=== PATIENT | male | born 1965 | race Caucasian/White ===

== ENCOUNTER 2016-05-24 08:30 | Emergency (ER) | payer MEDICARE ==
[~2016-05-24] VITALS: Ht 188 cm; Wt 104.0 kg
[~2016-05-24 08:30] MED LIST: ALBU8HFA IH; DIVA500T52 PO; DSS100 PO; FLUD25I IM; LISI-660 PO; OMEP20 PO; OMEP20CA4 PO; QUET400T3 PO; QUET50TA PO
[2016-05-24 08:38] VITALS: BP 153/100
[2016-05-24] MEDS ORDERED: LIDOCAINE HCL/PF 1% 2 ML VIAL IM ONE (11:00)
[2016-05-24] MEDS ORDERED: CefTRIAXone SODIUM 1 GM/VIAL IM ONE (11:00)
[2016-05-24] MEDS ORDERED: HYDROCODONE/ACETAMINOPHEN 5-325 MG TABLET PO ONE (11:00)
== END 2016-05-24 11:56 | disposition home or self-care (01) ==
LOC: EMS 08:32
DX: L02.811 Cutaneous abscess of head [any part, except face] (principal); L03.811 Cellulitis of head [any part, except face]; F12.90 Cannabis use, unspecified, uncomplicated; F17.210 Nicotine dependence, cigarettes, uncomplicated
CPT/HCPCS: 96372; 99284; J0696; J3490

== ENCOUNTER 2017-04-11 11:55 | Emergency (ER) | payer MEDICARE ==
[~2017-04-11] VITALS: Ht 188 cm; Wt 90.9 kg
[2017-04-11 12:57] LABS: BASOPHILS % (AUTO) 0.1 % (0.0-2.0); EOSINOPHILS % (AUTO) 0.3 % (1.0-6.0); HEMATOCRIT 49.8 % (41-53); HEMOGLOBIN 16.6 g/dL (13.5-17.5); LYMPHOCYTES # (AUTO) 0.8 K/uL (1.0-4.8); MEAN CORPUSCULAR HEMOGLOBIN 29.1 pg (26.0-34.0); MEAN CORPUSCULAR HGB CONC 33.3 G/dL (31.0-37.0); MEAN CORPUSCULAR VOLUME 87 fL (80-100); MONOCYTES # (AUTO) 0.6 K/uL (0.1-1.0); MONOCYTES % (AUTO) 5.8 % (2.0-9.0); NEUTROPHILS # (AUTO) 8.9 K/uL (1.8-7.7); PLATELET COUNT (AUTO) 301 K/uL (150-450); RED BLOOD CELL COUNT(AUTO) 5.69 MIL/uL (4.50-5.90); RED CELL DISTRIBUTION WIDTH 13.6 % (11.5-14.5)
[2017-04-11 12:58] LABS: NEUTROPHILS % (AUTO) 85.8 % (40.0-70.0)
[2017-04-11 13:08] LABS: ANION GAP 11 mmol/L (8-16); CALCIUM, TOTAL 9.3 mg/dL (8.8-10.5); CARBON DIOXIDE 26 mmol/L (22-29); CHLORIDE 100 mmol/L (98-107); CREATININE 0.83 mg/dL (0.60-1.30); GLOMERULAR FILTR. RATE CALC > 60 mL/min (>60); GLUCOSE,RANDOM 133 mg/dL (70-110); POTASSIUM 3.8 mmol/L (3.5-5.1); SODIUM SERUM 137 mmol/L (136-145); UREA NITROGEN, BLOOD 11 mg/dL (7-18)
[2017-04-11 13:13] LABS: ALANINE AMINOTRANSFERASE 38 U/L (12-78); ALBUMIN 4.1 g/dL (3.4-5.0); ALKALINE PHOSPHATASE 102 U/L (46-116); ASPARTATE AMINOTRANSFERASE 26 U/L (15-37); BILIRUBIN,TOTAL 0.4 mg/dL (0.1-1.0); TOTAL PROTEIN, SERUM 8.2 g/dL (6.4-8.2)
[2017-04-11 13:25] LABS: AMPHET/METH SCREEN,URINE NEGATIVE (NEGATIVE); BARBITURATE SCREEN, URINE NEGATIVE (NEGATIVE); BENZODIAZEPINES SCREEN,URINE NEGATIVE (NEGATIVE); CANNABINOID SCREEN,URINE NEGATIVE (NEGATIVE); COCAINE SCREEN,URINE NEGATIVE (NEGATIVE); METHADONE SCREEN, URINE NEGATIVE (NEGATIVE); OPIATE SCREEN,URINE NEGATIVE (NEGATIVE)
[2017-04-11 13:26] LABS: PHENCYCLIDINE SCREEN,URINE NEGATIVE (NEGATIVE)
[2017-04-11] MEDS ORDERED: ARIPiprazole 2 MG TABLET PO ONE (16:45)
[2017-04-11 16:49] VITALS: BP 141/93
== END 2017-04-11 16:52 | disposition home or self-care (01) ==
LOC: EMS 11:57
DX: F31.9 Bipolar disorder, unspecified (principal); F20.9 Schizophrenia, unspecified; F41.9 Anxiety disorder, unspecified; F17.210 Nicotine dependence, cigarettes, uncomplicated; F12.90 Cannabis use, unspecified, uncomplicated; Z91.14 Patient's other noncompliance with medication regimen
CPT/HCPCS: 36415; 80053; 80307; 85025; 99284; G0480

== ENCOUNTER 2017-04-25 11:25 | Inpatient (IN) | payer MEDICARE ==
[~2017-04-25] VITALS: Ht 188 cm; Wt 84.9 kg
[2017-04-25 11:41] LABS: BASOPHILS % (AUTO) 0.6 % (0.0-2.0); EOSINOPHILS % (AUTO) 1.9 % (1.0-6.0); HEMATOCRIT 47.5 % (41-53); HEMOGLOBIN 15.9 g/dL (13.5-17.5); LYMPHOCYTES # (AUTO) 1.8 K/uL (1.0-4.8); LYMPHOCYTES % (AUTO) 19.3 % (22.0-44.0); MEAN CORPUSCULAR HEMOGLOBIN 28.5 pg (26.0-34.0); MEAN CORPUSCULAR HGB CONC 33.5 G/dL (31.0-37.0); MEAN CORPUSCULAR VOLUME 85 fL (80-100); MONOCYTES # (AUTO) 0.8 K/uL (0.1-1.0); MONOCYTES % (AUTO) 8.3 % (2.0-9.0); NEUTROPHILS # (AUTO) 6.4 K/uL (1.8-7.7); NEUTROPHILS % (AUTO) 69.9 % (40.0-70.0); PLATELET COUNT (AUTO) 257 K/uL (150-450); RED BLOOD CELL COUNT(AUTO) 5.59 MIL/uL (4.50-5.90); RED CELL DISTRIBUTION WIDTH 13.9 % (11.5-14.5)
[2017-04-25 11:51] LABS: ANION GAP 8 mmol/L (8-16); CARBON DIOXIDE 26 mmol/L (22-29); CHLORIDE 102 mmol/L (98-107); CREATININE 0.92 mg/dL (0.60-1.30); GLOMERULAR FILTR. RATE CALC > 60 mL/min (>60); GLUCOSE,RANDOM 95 mg/dL (70-110); SODIUM SERUM 136 mmol/L (136-145); UREA NITROGEN, BLOOD 20 mg/dL (7-18)
[2017-04-25] MEDS ORDERED: LORazepam 2 MG/ML VIAL ONE (11:54)
[2017-04-25] MEDS ORDERED: DiphenhydrAMINE HCL 50 MG/ML VIAL ONE (11:54)
[2017-04-25] MEDS ORDERED: HALOPERIDOL LACTATE 5 MG/ML VIAL ONE (11:54)
[2017-04-25 11:56] LABS: AMPHET/METH SCREEN,URINE NEGATIVE (NEGATIVE); BARBITURATE SCREEN, URINE NEGATIVE (NEGATIVE); BENZODIAZEPINES SCREEN,URINE NEGATIVE (NEGATIVE); CANNABINOID SCREEN,URINE NEGATIVE (NEGATIVE); COCAINE SCREEN,URINE NEGATIVE (NEGATIVE); METHADONE SCREEN, URINE NEGATIVE (NEGATIVE); OPIATE SCREEN,URINE NEGATIVE (NEGATIVE)
[2017-04-25 11:57] LABS: PHENCYCLIDINE SCREEN,URINE NEGATIVE (NEGATIVE)
[2017-04-25 11:58] LABS: ALANINE AMINOTRANSFERASE 33 U/L (12-78); ALBUMIN 4.3 g/dL (3.4-5.0); ALKALINE PHOSPHATASE 125 U/L (46-116); ASPARTATE AMINOTRANSFERASE 25 U/L (15-37); BILIRUBIN,TOTAL 0.4 mg/dL (0.1-1.0); TOTAL PROTEIN, SERUM 7.8 g/dL (6.4-8.2); VALPROIC ACID < 3 mcg/mL (50-100)
[2017-04-25] MEDS ORDERED: HALOPERIDOL 5 MG TABLET PO ONE (12:00)
[2017-04-25] MEDS ORDERED: LORazepam 1 MG TABLET PO ONE (12:00)
[2017-04-25] MEDS ORDERED: DiphenhydrAMINE HCL 50 MG/ML VIAL IM ONE (12:15)
[2017-04-25] MEDS ORDERED: LORazepam 2 MG/ML VIAL IM ONE (12:15)
[2017-04-25] MEDS ORDERED: HALOPERIDOL LACTATE 5 MG/ML VIAL IM ONE (12:15)
[2017-04-25] MEDS ORDERED: ZOLPIDEM TARTRATE 10 MG TABLET PO PRN (12:45)
[2017-04-25] MEDS ORDERED: HALOPERIDOL 5 MG TABLET PO PRN (12:45)
[2017-04-25 13:29] LABS: FREE T4 (FREE THYROXINE) 1.08 ng/dL (0.76-1.46); THYROID STIMULATING HORMONE 0.92 uIU/mL (0.36-3.74)
[2017-04-26] MEDS: LORazepam 2 MG TABLET PO PRN ×2 (05:11→10:11)
[2017-04-26 11:57] VITALS: BP 105/71
[2017-04-26] MEDS ORDERED: INFLUENZA VIRUS VACCINE QVS 2017-18 (3YR+)/PF 60 MCG/0.5 ML SYRINGE IM ONE (12:00)
[2017-04-26] MEDS ORDERED: DOCUSATE SODIUM 100 MG CAPSULE PO PRN (12:30)
[2017-04-26 16:00] VITALS: BP 121/68
[2017-04-27 04:43] VITALS: BP 141/97
[2017-04-27] MEDS: LORazepam 2 MG TABLET PO PRN ×2 (06:26→13:35)
[2017-04-27] MEDS: OMEPRAZOLE 20 MG CAPSULE PO SCH (06:26)
[2017-04-27 08:15] VITALS: BP 112/77
[2017-04-27] MEDS: LISINOPRIL 5 MG TABLET PO SCH (08:28)
[2017-04-27] MEDS ORDERED: DIVALPROEX SODIUM 500 MG ER TABLET PO SCH ×2 (09:00→21:00)
[2017-04-27] MEDS ORDERED: LOPERAMIDE HCL 2 MG CAPSULE PO PRN (09:45)
[2017-04-27] MEDS ORDERED: MAGNESIUM HYDROXIDE SUSPENSION 30 ML UDCUP PO PRN (09:45)
[2017-04-27] MEDS ORDERED: MAG HYDROX/AL HYDROX/SIMETH ES 30 ML SUSPENSION UDCUP PO PRN (09:45)
[2017-04-27] MEDS ORDERED: IBUPROFEN 600 MG TABLET PO PRN (09:45)
[2017-04-27] MEDS ORDERED: BACITRACIN 28.4 GM OINTMENT TP PRN (09:45)
[2017-04-27] MEDS ORDERED: ALBUTEROL SULFATE HFA 90 MCG/PUFF 8 GM INHALER IH PRN (09:45)
[2017-04-27] MEDS ORDERED: PETROLATUM,WHITE 71 GM JELLY TP PRN (09:45)
[2017-04-27] MEDS ORDERED: ACETAMINOPHEN 325 MG TABLET PO PRN (09:45)
[2017-04-27] MEDS ORDERED: ONDANSETRON HCL 4 MG TABLET PO PRN (09:45)
[2017-04-27] MEDS ORDERED: CloNIDine HCL 0.1 MG TABLET PO PRN (09:45)
[2017-04-27] MEDS ORDERED: BENZOCAINE/MENTHOL LOZENGE MM PRN (09:45)
[2017-04-27] MEDS: ARIPiprazole 10 MG TABLET PO SCH (10:36)
[2017-04-27 16:00] VITALS: BP 137/75
[2017-04-27] MEDS: TERBINAFINE HCL 1% 30 GM CREAM TP SCH (17:10)
[2017-04-28 02:15] VITALS: BP 114/76
[2017-04-28] MEDS: LORazepam 2 MG TABLET PO PRN ×5 (02:20→18:32)
[2017-04-28] MEDS: OMEPRAZOLE 20 MG CAPSULE PO SCH (06:02)
[2017-04-28 08:00] VITALS: BP 115/60
[2017-04-28] MEDS: LISINOPRIL 5 MG TABLET PO SCH (08:48)
[2017-04-28] MEDS: ARIPiprazole 10 MG TABLET PO SCH (08:48)
[2017-04-28] MEDS: TERBINAFINE HCL 1% 30 GM CREAM TP SCH ×2 (08:49→16:52)
[2017-04-28] MEDS: MAGNESIUM SULFATE 454 GM BOX TP SCH (08:49)
[2017-04-28] MEDS ORDERED: LORazepam 2 MG TABLET PO ONE (09:45)
[2017-04-28 16:00] VITALS: BP 132/89
[2017-04-29 00:14] VITALS: BP 123/86
[2017-04-29] MEDS: OMEPRAZOLE 20 MG CAPSULE PO SCH (06:37)
[2017-04-29 08:04] VITALS: BP 119/79
[2017-04-29 08:55] LABS: ANION GAP 5 mmol/L (8-16); CALCIUM, TOTAL 8.8 mg/dL (8.8-10.5); CARBON DIOXIDE 31 mmol/L (22-29); CHLORIDE 102 mmol/L (98-107); CREATININE 0.85 mg/dL (0.60-1.30); GLOMERULAR FILTR. RATE CALC > 60 mL/min (>60); GLUCOSE,RANDOM 88 mg/dL (70-110); SODIUM SERUM 138 mmol/L (136-145); UREA NITROGEN, BLOOD 17 mg/dL (7-18)
[2017-04-29] MEDS: LISINOPRIL 5 MG TABLET PO SCH (09:42)
[2017-04-29] MEDS: ARIPiprazole 10 MG TABLET PO SCH (09:42)
[2017-04-29] MEDS: LORazepam 2 MG TABLET PO PRN (09:42)
[2017-04-29] MEDS: MAGNESIUM SULFATE 454 GM BOX TP SCH (09:42)
[2017-04-29] MEDS: TERBINAFINE HCL 1% 30 GM CREAM TP SCH (09:43)
[2017-04-29] MEDS ORDERED: LORazepam 1 MG TABLET PO PRN (12:45)
[2017-04-29] MEDS ORDERED: ARIP10TA8 PO (13:33)
== END 2017-04-29 15:50 | disposition home or self-care (01) | DRG 885 ==
LOC: EMS 11:26 → B3A 04-26 10:34
DX: F25.1 Schizoaffective disorder, depressive type (principal); R45.851 Suicidal ideations; B35.3 Tinea pedis; F41.9 Anxiety disorder, unspecified; F17.210 Nicotine dependence, cigarettes, uncomplicated; G47.00 Insomnia, unspecified; I10 Essential (primary) hypertension; J44.9 Chronic obstructive pulmonary disease, unspecified; K21.9 Gastro-esophageal reflux disease without esophagitis; K59.00 Constipation, unspecified; M19.90 Unspecified osteoarthritis, unspecified site; Z59.9 Problem related to housing and economic circumstances, unspecified; Z79.899 Other long term (current) drug therapy
CPT/HCPCS: 84439; 84443; 90471; 96372; 99285; G0480; J1200; J1630; J2060

== ENCOUNTER 2019-12-12 09:37 | Emergency (ER) | payer MEDICAID, MEDICARE ==
[~2019-12-12] VITALS: Ht 188 cm; Wt 81.8 kg
[~2019-12-12 09:37] MED LIST changes: -ALBU8HFA IH; +ARIP10TA8 PO; -DIVA500T52 PO; -DSS100 PO; -FLUD25I IM; -OMEP20 PO; -QUET400T3 PO; -QUET50TA PO
[2019-12-12] MEDS ORDERED: PERTUSS(ACELL),DIPH,TET VAC/PF 0.5 ML VIAL IM ONE (10:00)
[2019-12-12] MEDS ORDERED: HYDROCODONE/ACETAMINOPHEN 5-325 MG TABLET PO ONE (10:00)
[2019-12-12 10:52] VITALS: BP 129/75
== END 2019-12-12 11:32 | disposition left against medical advice (07) ==
LOC: EMS 09:46
DX: S61.441A Puncture wound with foreign body of right hand, initial encounter (principal); F31.9 Bipolar disorder, unspecified; F41.9 Anxiety disorder, unspecified; F20.9 Schizophrenia, unspecified; F12.90 Cannabis use, unspecified, uncomplicated; F17.210 Nicotine dependence, cigarettes, uncomplicated; Z79.899 Other long term (current) drug therapy; W45.8XXA Other foreign body or object entering through skin, initial encounter; Y93.89 Activity, other specified; Y92.89 Other specified places as the place of occurrence of the external cause; Y99.8 Other external cause status
CPT/HCPCS: 73200; 90471; 90715; 96372; 99284; J0690

== ENCOUNTER 2021-01-02 19:57 | Emergency (ER) | payer MEDICARE ==
[~2021-01-02] VITALS: Ht 188 cm; Wt 81.8 kg
[2021-01-02 19:59] VITALS: BP 137/93
== END 2021-01-02 22:40 | disposition left against medical advice (07) ==
LOC: EMS 20:00
DX: L08.9 Local infection of the skin and subcutaneous tissue, unspecified (principal); Z53.21 Procedure and treatment not carried out due to patient leaving prior to being seen by health care provider

== ENCOUNTER → 2021-01-02 | Emergency (ER) | payer MEDICARE ==
[~2021-01-02] VITALS: Ht 182.9 cm; Wt 81.8 kg
[~2021-01-02] MED LIST changes: +ARIP10TA38 PO; -ARIP10TA8 PO; -LISI-660 PO; +LISI-892 PO
[2021-01-03 02:00] VITALS: BP 134/70
== END | disposition left against medical advice (07) ==
LOC: EMS 23:23
DX: F20.9 Schizophrenia, unspecified (principal); F31.9 Bipolar disorder, unspecified; F41.9 Anxiety disorder, unspecified; F12.90 Cannabis use, unspecified, uncomplicated; F17.210 Nicotine dependence, cigarettes, uncomplicated; Z76.5 Malingerer [conscious simulation]; Z59.00 Homelessness unspecified; Z79.899 Other long term (current) drug therapy
CPT/HCPCS: 99283; Z7502

== ENCOUNTER 2022-10-13 19:21 | Emergency (ER) | payer MEDICARE ==
[~2022-10-13] VITALS: Ht 188 cm; Wt 82.0 kg
[2022-10-13] MEDS ORDERED: OxyCODONE HCL/ACETAMINOPHEN 5-325 MG TABLET PO ONE (21:15)
[2022-10-13 21:22] LABS: BASOPHILS % (AUTO) 0.2 % (0.0-2.0); EOSINOPHILS % (AUTO) 0.6 % (1.0-6.0); HEMATOCRIT 34.8 % (41-53); HEMOGLOBIN 11.5 g/dL (13.5-17.5); LYMPHOCYTES % (AUTO) 13.3 % (22.0-44.0); MEAN CORPUSCULAR VOLUME 79 fL (80-100); MONOCYTES # (AUTO) 0.9 K/uL (0.1-1.0); MONOCYTES % (AUTO) 12.1 % (2.0-9.0); NEUTROPHILS # (AUTO) 5.6 K/uL (1.8-7.7); NEUTROPHILS % (AUTO) 73.8 % (40.0-70.0); PLATELET COUNT (AUTO) 314 K/uL (150-450); RED BLOOD CELL COUNT(AUTO) 4.41 MIL/uL (4.50-5.90); RED CELL DISTRIBUTION WIDTH 16.3 % (11.5-14.5)
[2022-10-13 21:31] LABS: ANION GAP 13 mmol/L (8-16); CALCIUM, TOTAL 8.9 mg/dL (8.8-10.5); CARBON DIOXIDE 21 mmol/L (22-29); CHLORIDE 100 mmol/L (98-107); CREATININE 0.82 mg/dL (0.60-1.30); GLOMERULAR FILTR. RATE CALC > 60 mL/min (>60); GLUCOSE,RANDOM 106 mg/dL (70-110); POTASSIUM 3.6 mmol/L (3.5-5.1); SODIUM SERUM 134 mmol/L (136-145)
[2022-10-13 21:34] LABS: INR 1.1 (0.9-1.1); PROTHROMBIN TIME 11.7 SEC (9.4-11.6)
[2022-10-13 21:38] LABS: ALANINE AMINOTRANSFERASE 23 U/L (12-78); ALBUMIN 3.1 g/dL (3.4-5.0); ALKALINE PHOSPHATASE 128 U/L (46-116); ASPARTATE AMINOTRANSFERASE 27 U/L (15-37); BILIRUBIN,TOTAL 0.5 mg/dL (0.1-1.0); TOTAL PROTEIN, SERUM 8.4 g/dL (6.4-8.2)
[2022-10-13 21:58] VITALS: TEMP 98.7
[2022-10-13] MEDS ORDERED: MORPHINE SULFATE 4 MG/ML SYRINGE IVP ONE (22:30)
[2022-10-13] MEDS ORDERED: IOHEXOL 350 MG/ML 100 ML VIAL ONE (22:52)
[2022-10-13] MEDS ORDERED: SODIUM CHLORIDE 0.9% 100 ML ONE (22:52)
[2022-10-13] MEDS ORDERED: PERTUSS(ACELL),DIPH,TET VAC/PF 0.5 ML SYRINGE IM. ONE (23:00)
[2022-10-14] MEDS ORDERED: OxyCODONE HCL/ACETAMINOPHEN 5-325 MG TABLET PO ONE (02:45)
[2022-10-14 11:45] VITALS: BP 121/73; PULSE 84; RESP 18
== END 2022-10-14 13:07 | disposition home or self-care (01) ==
LOC: EMS 19:22
DX: S02.2XXA Fracture of nasal bones, initial encounter for closed fracture (principal); S00.33XA Contusion of nose, initial encounter; S09.90XA Unspecified injury of head, initial encounter; F41.9 Anxiety disorder, unspecified; M19.90 Unspecified osteoarthritis, unspecified site; F31.9 Bipolar disorder, unspecified; J44.9 Chronic obstructive pulmonary disease, unspecified; I10 Essential (primary) hypertension; F20.9 Schizophrenia, unspecified; F17.210 Nicotine dependence, cigarettes, uncomplicated; F12.90 Cannabis use, unspecified, uncomplicated; F15.90 Other stimulant use, unspecified, uncomplicated; Z98.890 Other specified postprocedural states; W18.39XA Other fall on same level, initial encounter; Y93.89 Activity, other specified; Y92.89 Other specified places as the place of occurrence of the external cause; Y99.8 Other external cause status
CPT/HCPCS: 99285; 70450; 96374; 71045; 80053; 84484; 85025; 85610; 85730; 36415; 70486; 72125; 73701; 90715; 93005; 90471; J2270; Q9967; J7050

== ENCOUNTER 2023-06-23 09:13 | Emergency (ER) | payer MEDICARE, MEDICAID ==
[~2023-06-23] VITALS: Ht 182.9 cm; Wt 81.8 kg
[2023-06-23 09:38] VITALS: TEMP 98.6
[2023-06-23 10:23] LABS: BASOPHILS % (AUTO) 0.2 % (0.0-2.0); EOSINOPHILS % (AUTO) 1.9 % (1.0-6.0); HEMATOCRIT 41.3 % (41-53); HEMOGLOBIN 13.4 g/dL (13.5-17.5); LYMPHOCYTES # (AUTO) 0.9 K/uL (1.0-4.8); LYMPHOCYTES % (AUTO) 18.8 % (22.0-44.0); MEAN CORPUSCULAR HEMOGLOBIN 24.9 pg (26.0-34.0); MEAN CORPUSCULAR HGB CONC 32.4 G/dL (31.0-37.0); MEAN CORPUSCULAR VOLUME 77 fL (80-100); MONOCYTES # (AUTO) 0.5 K/uL (0.1-1.0); MONOCYTES % (AUTO) 10.7 % (2.0-9.0); NEUTROPHILS # (AUTO) 3.3 K/uL (1.8-7.7); NEUTROPHILS % (AUTO) 68.4 % (40.0-70.0); PLATELET COUNT (AUTO) 271 K/uL (150-450); RED BLOOD CELL COUNT(AUTO) 5.37 MIL/uL (4.50-5.90); RED CELL DISTRIBUTION WIDTH 16.1 % (11.5-14.5); WHITE BLOOD COUNT (AUTO) 4.9 K/uL (4.5-11.0)
[2023-06-23 10:26] LABS: ANION GAP 7 mmol/L (8-16); CARBON DIOXIDE 29 mmol/L (22-29); CHLORIDE 101 mmol/L (98-107); CREATININE 0.75 mg/dL (0.60-1.30); GLOMERULAR FILTR. RATE CALC > 60 mL/min (>60); GLUCOSE,RANDOM 89 mg/dL (70-110); POTASSIUM 3.5 mmol/L (3.5-5.1); SODIUM SERUM 137 mmol/L (136-145); UREA NITROGEN, BLOOD 15 mg/dL (7-18)
[2023-06-23 10:33] LABS: ALANINE AMINOTRANSFERASE 22 U/L (12-78); ALBUMIN 3.2 g/dL (3.4-5.0); ALKALINE PHOSPHATASE 126 U/L (46-116); ASPARTATE AMINOTRANSFERASE 31 U/L (15-37); BILIRUBIN,TOTAL 0.4 mg/dL (0.1-1.0)
[2023-06-23 10:39] LABS: ALCOHOL, BLOOD (SERUM) < 3 mg/dL (0-10)
[2023-06-23 11:59] LABS: APPEARANCE,URINE CLEAR (CLEAR); BILIRUBIN,URINE NEGATIVE (NEGATIVE); COLOR,URINE LIGHT YELLOW (YELLOW); GLUCOSE, URINE (UA) NEGATIVE (NEGATIVE); LEUKOCYTE ESTERASE ,URINE NEGATIVE (NEGATIVE); NITRATE,URINE NEGATIVE (NEGATIVE); OCCULT BLOOD,URINE NEGATIVE (NEGATIVE); PROTEIN,URINE NEGATIVE (NEGATIVE); SPECIFIC GRAVITIY, URINE 1.024 (1.003-1.030); UROBILINOGEN,URINE <=1.0 mg/dL (<=1.0)
[2023-06-23 12:05] LABS: ALCOHOL, URINE DRUG SCREEN NEGATIVE (NEGATIVE); AMPHET/METH SCREEN,URINE POSITIVE (NEGATIVE); BARBITURATE SCREEN, URINE NEGATIVE (NEGATIVE); BENZODIAZEPINES SCREEN,URINE NEGATIVE (NEGATIVE); CANNABINOID SCREEN,URINE POSITIVE (NEGATIVE); COCAINE SCREEN,URINE NEGATIVE (NEGATIVE); METHADONE SCREEN, URINE NEGATIVE (NEGATIVE); OPIATE SCREEN,URINE NEGATIVE (NEGATIVE); PHENCYCLIDINE SCREEN,URINE NEGATIVE (NEGATIVE)
[2023-06-23] MEDS ORDERED: OMEP20 PO (13:10)
[2023-06-23] MEDS: ONDANSETRON HCL 4 MG TABLET PO ONE (13:12)
[2023-06-23 13:15] VITALS: BP 165/100; PULSE 75; RESP 16
[2023-06-25] MEDS ORDERED: OLAN7.5T22 PO (09:13)
== END 2023-06-23 13:31 | disposition home or self-care (01) ==
LOC: EMS 09:13
DX: F31.9 Bipolar disorder, unspecified (principal); F19.10 Other psychoactive substance abuse, uncomplicated; D64.9 Anemia, unspecified; K59.00 Constipation, unspecified; I10 Essential (primary) hypertension; J44.9 Chronic obstructive pulmonary disease, unspecified; F41.9 Anxiety disorder, unspecified; F20.9 Schizophrenia, unspecified; K21.9 Gastro-esophageal reflux disease without esophagitis; F17.210 Nicotine dependence, cigarettes, uncomplicated; F12.90 Cannabis use, unspecified, uncomplicated; F15.90 Other stimulant use, unspecified, uncomplicated; Z59.00 Homelessness unspecified
CPT/HCPCS: 99283; 80053; 85025; 36415; 80307; 81003; Q0162; G0480

== ENCOUNTER 2023-09-16 21:43 | Emergency (ER) | payer MEDICARE, MEDICAID ==
[~2023-09-16] VITALS: Ht 180.3 cm; Wt 84.1 kg
[2023-09-16 21:48] VITALS: BP 115/81; PULSE 76; RESP 18; TEMP 98.6
== END 2023-09-17 00:59 | disposition left against medical advice (07) ==
LOC: EMS 21:43
DX: M79.671 Pain in right foot (principal); Z53.21 Procedure and treatment not carried out due to patient leaving prior to being seen by health care provider

== ENCOUNTER 2023-09-17 18:28 | Emergency (ER) | payer MEDICARE, MEDICAID ==
[~2023-09-17] VITALS: Ht 180.3 cm; Wt 70.0 kg
[2023-09-17 19:29] VITALS: TEMP 97.3
[2023-09-17 19:59] LABS: BASOPHILS % (AUTO) 0.2 % (0.0-2.0); EOSINOPHILS % (AUTO) 8.9 % (1.0-6.0); HEMATOCRIT 34.8 % (41-53); HEMOGLOBIN 11.1 g/dL (13.5-17.5); LYMPHOCYTES # (AUTO) 1.4 K/uL (1.0-4.8); LYMPHOCYTES % (AUTO) 20.8 % (22.0-44.0); MEAN CORPUSCULAR HEMOGLOBIN 25.2 pg (26.0-34.0); MEAN CORPUSCULAR HGB CONC 31.9 G/dL (31.0-37.0); MEAN CORPUSCULAR VOLUME 79 fL (80-100); MONOCYTES # (AUTO) 0.6 K/uL (0.1-1.0); MONOCYTES % (AUTO) 8.7 % (2.0-9.0); NEUTROPHILS # (AUTO) 4.2 K/uL (1.8-7.7); NEUTROPHILS % (AUTO) 61.4 % (40.0-70.0); PLATELET COUNT (AUTO) 399 K/uL (150-450); RED CELL DISTRIBUTION WIDTH 16.6 % (11.5-14.5); WHITE BLOOD COUNT (AUTO) 6.8 K/uL (4.5-11.0)
[2023-09-17 20:09] LABS: ANION GAP 3 mmol/L (8-16); CALCIUM, TOTAL 8.4 mg/dL (8.8-10.5); CARBON DIOXIDE 31 mmol/L (22-29); CHLORIDE 104 mmol/L (98-107); GLOMERULAR FILTR. RATE CALC > 60 mL/min (>60); GLUCOSE,RANDOM 105 mg/dL (70-110); POTASSIUM 3.8 mmol/L (3.5-5.1); SODIUM SERUM 138 mmol/L (136-145); UREA NITROGEN, BLOOD 17 mg/dL (7-18)
[2023-09-17 20:11] LABS: ALCOHOL, BLOOD (SERUM) < 3 mg/dL (0-10)
[2023-09-17] MEDS: GABAPENTIN 300 MG CAPSULE PO ONE (20:11)
[2023-09-17] MEDS: LORazepam 2 MG TABLET PO ONE (20:11)
[2023-09-17 20:50] LABS: COVID AG,FIA SOURCE NASAL SWAB
[2023-09-17 21:00] VITALS: BP 119/71; PULSE 72; RESP 18
[2023-09-17 21:09] LABS: SARS-COV2 (COVID) ANTIGEN,FIA Negative (Negative)
== END 2023-09-17 21:00 | disposition home or self-care (01) ==
LOC: EMS 18:28
DX: F25.9 Schizoaffective disorder, unspecified (principal); J44.9 Chronic obstructive pulmonary disease, unspecified; I10 Essential (primary) hypertension; K21.9 Gastro-esophageal reflux disease without esophagitis; F17.210 Nicotine dependence, cigarettes, uncomplicated; F12.90 Cannabis use, unspecified, uncomplicated; F15.10 Other stimulant abuse, uncomplicated; Z59.00 Homelessness unspecified; Z79.899 Other long term (current) drug therapy; Z20.822 Contact with and (suspected) exposure to COVID-19
CPT/HCPCS: 99283; 87426; 80048; 85025; 36415; G0480

== ENCOUNTER 2023-09-29 23:57 | Emergency (ER) | payer MEDICARE, MEDICAID ==
[~2023-09-29] VITALS: Ht 180.3 cm; Wt 56.8 kg
[2023-09-30 00:56] VITALS: BP 120/90; PULSE 78; RESP 15; TEMP 97.8
[2023-09-30] MEDS ORDERED: ACET-2247 PO (02:20)
[2023-09-30] MEDS: KETOROLAC TROMETHAMINE 30 MG/ML VIAL IM ONE (02:34)
[2023-09-30] MEDS: ACETAMINOPHEN 325 MG TABLET PO ONE (02:34)
[2023-09-30] MEDS: HydrOXYzine PAMOATE 25 MG CAPSULE PO ONE (02:44)
== END 2023-09-30 04:28 | disposition home or self-care (01) ==
LOC: EMS 23:58
DX: M79.672 Pain in left foot (principal); M79.671 Pain in right foot; K59.00 Constipation, unspecified; F41.9 Anxiety disorder, unspecified; F31.9 Bipolar disorder, unspecified; F20.9 Schizophrenia, unspecified; J44.9 Chronic obstructive pulmonary disease, unspecified; I10 Essential (primary) hypertension; F17.210 Nicotine dependence, cigarettes, uncomplicated; F12.90 Cannabis use, unspecified, uncomplicated; F15.90 Other stimulant use, unspecified, uncomplicated
CPT/HCPCS: 99283; 96372; J1885

== ENCOUNTER 2023-11-13 19:40 | Emergency (ER) | payer MEDICARE, MEDICAID ==
[~2023-11-13] VITALS: Ht 188 cm; Wt 81.8 kg
[~2023-11-13 19:40] MED LIST changes: +ACET-2247 PO; -ARIP10TA38 PO; -LISI-892 PO; -OMEP20CA4 PO
[2023-11-13 19:46] VITALS: TEMP 98.2
[2023-11-13] MEDS: KETOROLAC TROMETHAMINE 30 MG/ML VIAL IM ONE (23:33)
[2023-11-13] MEDS: LORazepam 1 MG TABLET PO ONE (23:33)
[2023-11-13] MEDS: ACETAMINOPHEN 325 MG TABLET PO ONE (23:33)
[2023-11-13] MEDS ORDERED: ACET-2247 PO (23:44)
[2023-11-14] VITALS: BP 142/69; PULSE 87; RESP 18; O2SAT 97
== END 2023-11-14 00:09 | disposition home or self-care (01) ==
LOC: EMS 19:40
DX: M79.672 Pain in left foot (principal); M79.671 Pain in right foot; F41.9 Anxiety disorder, unspecified; M19.90 Unspecified osteoarthritis, unspecified site; F31.9 Bipolar disorder, unspecified; J44.9 Chronic obstructive pulmonary disease, unspecified; I10 Essential (primary) hypertension; F20.9 Schizophrenia, unspecified; F12.90 Cannabis use, unspecified, uncomplicated; F15.90 Other stimulant use, unspecified, uncomplicated; F17.210 Nicotine dependence, cigarettes, uncomplicated; Z98.890 Other specified postprocedural states
CPT/HCPCS: 99283; 96372; J1885

== ENCOUNTER → 2023-11-29 | Emergency (ER) | payer MEDICARE, MEDICAID ==
[~2023-11-29] VITALS: Ht 180.3 cm; Wt 56.8 kg
[2023-11-29 04:29] LABS: BASOPHILS % (AUTO) 0.4 % (0.0-2.0); HEMATOCRIT 37.6 % (41-53); HEMOGLOBIN 12.2 g/dL (13.5-17.5); LYMPHOCYTES # (AUTO) 1.1 K/uL (1.0-4.8); LYMPHOCYTES % (AUTO) 17.9 % (22.0-44.0); MEAN CORPUSCULAR HEMOGLOBIN 25.5 pg (26.0-34.0); MEAN CORPUSCULAR HGB CONC 32.5 G/dL (31.0-37.0); MEAN CORPUSCULAR VOLUME 79 fL (80-100); MONOCYTES # (AUTO) 0.5 K/uL (0.1-1.0); NEUTROPHILS # (AUTO) 4.2 K/uL (1.8-7.7); NEUTROPHILS % (AUTO) 65.7 % (40.0-70.0); PLATELET COUNT (AUTO) 330 K/uL (150-450); RED BLOOD CELL COUNT(AUTO) 4.79 MIL/uL (4.50-5.90); RED CELL DISTRIBUTION WIDTH 15.9 % (11.5-14.5); WHITE BLOOD COUNT (AUTO) 6.3 K/uL (4.5-11.0)
[2023-11-29 04:43] LABS: ALCOHOL, BLOOD (SERUM) < 3 mg/dL (0-10)
[2023-11-29 04:48] LABS: ANION GAP 10 mmol/L (8-16); CALCIUM, TOTAL 8.5 mg/dL (8.8-10.5); CARBON DIOXIDE 24 mmol/L (22-29); CHLORIDE 103 mmol/L (98-107); CREATININE 0.84 mg/dL (0.60-1.30); GLOMERULAR FILTR. RATE CALC > 60 mL/min (>60); GLUCOSE,RANDOM 100 mg/dL (70-110); POTASSIUM 3.5 mmol/L (3.5-5.1); SODIUM SERUM 137 mmol/L (136-145); UREA NITROGEN, BLOOD 21 mg/dL (7-18)
[2023-11-29] MEDS: MAGNESIUM SULFATE 2 GM, MVI, ADULT NO.1 WITH VIT K 10 ML, THIAMINE 100 MG, FOLIC ACID 1... IV ONE (05:26)
[2023-11-29 07:10] LABS: GLUCOMETER DEV NAME(LOC) ER.7; GLUCOSE,POINT OF CARE 92 MG/DL (70-110)
[2023-11-29 09:24] VITALS: BP 125/86; PULSE 88; RESP 16; TEMP 98; O2SAT 100
== END | disposition still patient (30) ==
LOC: EMS 03:43
DX: Z00.00 Encounter for general adult medical examination without abnormal findings (principal); Z59.00 Homelessness unspecified; F17.210 Nicotine dependence, cigarettes, uncomplicated; F12.90 Cannabis use, unspecified, uncomplicated; F15.10 Other stimulant abuse, uncomplicated; J44.9 Chronic obstructive pulmonary disease, unspecified; K21.9 Gastro-esophageal reflux disease without esophagitis; I10 Essential (primary) hypertension
CPT/HCPCS: 99284; 96365; 80048; 82962; 85025; 36415; G0480; J3490 ×2; J3411; J3475; J7030

== ENCOUNTER 2023-11-30 23:24 | Emergency (ER) | payer MEDICARE, MEDICAID ==
[~2023-11-30] VITALS: Ht 190.5 cm; Wt 68.2 kg
[2023-11-30 23:52] VITALS: BP 115/80; PULSE 82; RESP 18; TEMP 98; O2SAT 98
== END 2023-12-01 02:30 | disposition left against medical advice (07) ==
LOC: EMS 23:25
DX: M79.671 Pain in right foot (principal); M79.672 Pain in left foot; Z53.21 Procedure and treatment not carried out due to patient leaving prior to being seen by health care provider

== ENCOUNTER 2023-12-03 19:08 | Emergency (ER) | payer MEDICARE, MEDICAID | END 2023-12-03 19:17 | disposition left against medical advice (07) | LOC: EMS 19:08 | DX: M79.10 Myalgia, unspecified site (principal); R05.9 Cough, unspecified; R50.9 Fever, unspecified; Z53.21 Procedure and treatment not carried out due to patient leaving prior to being seen by health care provider ==

== ENCOUNTER 2024-02-20 23:32 | Emergency (ER) | payer MEDICARE, MEDICAID ==
[~2024-02-20] VITALS: Ht 185.4 cm; Wt 85.0 kg
[2024-02-20 23:35] VITALS: BP 140/65; PULSE 88; RESP 20; TEMP 98; O2SAT 100
[2024-02-21] MEDS: HYDROCODONE/ACETAMINOPHEN 5-325 MG TABLET PO ONE (02:41)
== END 2024-02-21 02:43 | disposition home or self-care (01) ==
LOC: EMS 23:32
DX: M79.671 Pain in right foot (principal); M79.672 Pain in left foot; J44.9 Chronic obstructive pulmonary disease, unspecified; I10 Essential (primary) hypertension; F20.9 Schizophrenia, unspecified; K21.9 Gastro-esophageal reflux disease without esophagitis; F12.90 Cannabis use, unspecified, uncomplicated; F17.210 Nicotine dependence, cigarettes, uncomplicated; Z59.00 Homelessness unspecified
CPT/HCPCS: 99283

== ENCOUNTER 2025-01-04 12:47 | Inpatient (IN) | payer MEDICARE, MEDICAID ==
[~2025-01-04] VITALS: Ht 188 cm; Wt 89.8 kg
[~2025-01-04 12:47] MED LIST changes: -ACET-2247 PO; +AMOX-457 PO; +ARIP15TA27 PO; +LEVE-71 PO
[2025-01-04 14:39] LABS: PLATELET COUNT (AUTO) 247 K/uL (150-450); RED BLOOD CELL COUNT(AUTO) 5.65 MIL/uL (4.50-5.90); RED CELL DISTRIBUTION WIDTH 17.7 % (11.5-14.5); WHITE BLOOD COUNT (AUTO) 6.2 K/uL (4.5-11.0)
[2025-01-04 14:41] LABS: CALCIUM, TOTAL 8.8 mg/dL (8.8-10.5); CREATININE 0.88 mg/dL (0.60-1.30); GLOMERULAR FILTR. RATE CALC > 60 mL/min (>60); GLUCOSE,RANDOM 90 mg/dL (70-110); SODIUM SERUM 138 mmol/L (136-145); UREA NITROGEN, BLOOD 18 mg/dL (7-18)
[2025-01-04 14:47] LABS: ASPARTATE AMINOTRANSFERASE 21.0 U/L (15-37); CREATINE KINASE, TOTAL ONLY 188.0 U/L (39-308); TOTAL PROTEIN, SERUM 8.2 g/dL (6.4-8.2)
[2025-01-04 14:48] LABS: ALCOHOL, BLOOD (SERUM) < 3 mg/dL (0-10)
[2025-01-04 14:51] LABS: TROPONIN I-HIGH SENSITIVITY 6 ng/L (<76)
[2025-01-04] MEDS: SODIUM CHLORIDE 0.9% 1,000 ML IV ONE (15:01)
[2025-01-04] MEDS ORDERED: ZOLPIDEM TARTRATE 5 MG TABLET PO PRN (18:15)
[2025-01-04] MEDS ORDERED: ACETAMINOPHEN 325 MG TABLET PO PRN (18:15)
[2025-01-04] MEDS ORDERED: ONDANSETRON HCL 4 MG/2 ML VIAL IVP PRN (18:15)
[2025-01-04] MEDS ORDERED: MAGNESIUM HYDROXIDE SUSPENSION 30 ML UDCUP PO PRN (18:15)
[2025-01-04] MEDS ORDERED: MORPHINE SULFATE 4 MG/ML SYRINGE IVP PRN (18:15)
[2025-01-04] MEDS ORDERED: HYDROCODONE/ACETAMINOPHEN 5-325 MG TABLET PO PRN (18:15)
[2025-01-04] MEDS ORDERED: BISACODYL 10 MG RECTAL RECTAL SUPPOSITORY PR PRN (18:15)
[2025-01-04] MEDS: DOCUSATE SODIUM 100 MG CAPSULE PO SCH (20:43)
[2025-01-04] MEDS: HEPARIN SODIUM,PORCINE 5,000 UNITS/ML VIAL SQ SCH (23:04)
[2025-01-05 03:09] VITALS: BP 122/70; PULSE 55; RESP 18; TEMP 97.5; O2SAT 100
[2025-01-05 05:43] VITALS: BP 147/89; PULSE 62; RESP 18; TEMP 97.5; O2SAT 99
[2025-01-05 06:13] LABS: PLATELET COUNT (AUTO) 229 K/uL (150-450); RED BLOOD CELL COUNT(AUTO) 5.55 MIL/uL (4.50-5.90); RED CELL DISTRIBUTION WIDTH 18.1 % (11.5-14.5); WHITE BLOOD COUNT (AUTO) 4.2 K/uL (4.5-11.0)
[2025-01-05 06:19] LABS: CALCIUM, TOTAL 8.3 mg/dL (8.8-10.5); CREATININE 0.94 mg/dL (0.60-1.30); GLOMERULAR FILTR. RATE CALC > 60 mL/min (>60); GLUCOSE,RANDOM 89 mg/dL (70-110); SODIUM SERUM 137 mmol/L (136-145); UREA NITROGEN, BLOOD 17 mg/dL (7-18)
[2025-01-05 08:00] VITALS: BP 144/91; PULSE 80; RESP 18; TEMP 98.4; O2SAT 99
[2025-01-05] MEDS: PANTOPRAZOLE SODIUM 40 MG DR TABLET PO SCH (08:31)
[2025-01-05 09:30] LABS: PH,URINE DRUG SCREEN 6.5 (5.0-8.0)
[2025-01-05 09:50] LABS: AMPHET/METH SCREEN,URINE NEGATIVE (NEGATIVE); BARBITURATE SCREEN, URINE NEGATIVE (NEGATIVE); CANNABINOID SCREEN,URINE POSITIVE (NEGATIVE); COCAINE SCREEN,URINE NEGATIVE (NEGATIVE); METHADONE SCREEN, URINE NEGATIVE (NEGATIVE)
[2025-01-05 09:53] LABS: ALCOHOL, URINE DRUG SCREEN NEGATIVE (NEGATIVE)
[2025-01-05 11:46] VITALS: BP 153/112; PULSE 92; RESP 19; TEMP 98.3; O2SAT 100
[2025-01-05 15:44] VITALS: BP 124/82; PULSE 63; RESP 18; TEMP 98.3; O2SAT 95
[2025-01-05] MEDS ORDERED: HYDR25TA83 PO (16:51)
== END 2025-01-05 17:29 | disposition left against medical advice (07) | DRG 74 ==
LOC: EMS 12:47 → EDH 15:55 → 5N 01-05 02:15
PROVIDERS: ADMIT Internal Medicine; ATTEND Internal Medicine
DX: G90.89 Other disorders of autonomic nervous system (principal); F41.9 Anxiety disorder, unspecified; G40.909 Epilepsy, unspecified, not intractable, without status epilepticus; J44.9 Chronic obstructive pulmonary disease, unspecified; I12.9 Hypertensive chronic kidney disease with stage 1 through stage 4 chronic kidney disease, or unspecified chronic kidney disease; N18.9 Chronic kidney disease, unspecified; F20.9 Schizophrenia, unspecified; F99 Mental disorder, not otherwise specified; F32.A Depression, unspecified; K21.9 Gastro-esophageal reflux disease without esophagitis; Z76.5 Malingerer [conscious simulation]; Z87.891 Personal history of nicotine dependence; Z53.29 Procedure and treatment not carried out because of patient's decision for other reasons
CPT/HCPCS: 71045; 80048; 80076; 80307; 82550; 83735; 83880; 84484; 85025; 85610; 85730; 93005; 99285; G0378; G0480; J1644; J7030; 36415-L1; 36415-TC

== ENCOUNTER 2025-01-06 16:08 | Emergency (ER) | payer MEDICARE, MEDICAID ==
[~2025-01-06] VITALS: Ht 188 cm; Wt 84.9 kg
[~2025-01-06 16:08] MED LIST changes: -AMOX-457 PO; +HYDR25TA83 PO
[2025-01-06 16:17] VITALS: TEMP 98.405312
[2025-01-06 19:38] VITALS: BP 139/86; PULSE 75; RESP 18; O2SAT 98
== END 2025-01-06 19:43 | disposition home or self-care (01) ==
LOC: EMS 16:08
DX: F41.9 Anxiety disorder, unspecified (principal); F20.9 Schizophrenia, unspecified; F17.210 Nicotine dependence, cigarettes, uncomplicated; Z98.890 Other specified postprocedural states; Z86.73 Personal history of transient ischemic attack (TIA), and cerebral infarction without residual deficits; Z79.899 Other long term (current) drug therapy
CPT/HCPCS: 99283

== ENCOUNTER 2025-03-04 03:43 | Emergency (ER) | payer MEDICARE, MEDICAID ==
[~2025-03-04] VITALS: Ht 185.4 cm; Wt 86.4 kg
[2025-03-04 04:00] VITALS: TEMP 98.1
[2025-03-04] MEDS: PERTUSS(ACELL),DIPH,TET/PF 0.5 ML SYRINGE [ADULT] IM. ONE (04:33)
[2025-03-04 04:50] VITALS: BP 135/87; PULSE 83; RESP 18; O2SAT 95
[2025-03-04] MEDS ORDERED: LEVE-71 PO (05:33)
[2025-03-04] MEDS: FAMOTIDINE 20 MG TABLET PO ONE (06:02)
== END 2025-03-04 06:29 | disposition home or self-care (01) ==
LOC: EMS 03:43
DX: S01.21XA Laceration without foreign body of nose, initial encounter (principal); G40.909 Epilepsy, unspecified, not intractable, without status epilepticus; F17.210 Nicotine dependence, cigarettes, uncomplicated; Z79.899 Other long term (current) drug therapy; Z65.9 Problem related to unspecified psychosocial circumstances; X58.XXXA Exposure to other specified factors, initial encounter; Y93.89 Activity, other specified; Y92.89 Other specified places as the place of occurrence of the external cause; Y99.8 Other external cause status
CPT/HCPCS: 90471; 90715; 99283